=== PATIENT | male | born 1945 | race African-American/Black ===

== ENCOUNTER → 2018-11-13 | Outpatient (CLI) | payer OTHER ==
[~2018-11-13] MED LIST: ADULT LOW DOSE81 MG PO; ALTACE5 M1 PO; BENADRYL25 MG PO; CARVEDILOL12.5 MG PO; COLACE100 MG PO; COZAAR 25 MG TA25 M1 PO; EFFIENT10 MG PO; INVOKANA100 MG PO; JANUMET 50-1,01 EACH; KLOR-CON 1010 MEQ PO; LANTUS100 UNIT/M; LASIX 20 MG TAB20 MG PO; LIPITOR80 MG PO; LOPRESSOR25 PO; LOTENSIN; LOTENSIN20 MG PO; METFORMIN HCL500 MG PO; NITROGLYCERIN0.4 MG SL; NORCO 10-325 T1 EACH PO; NORCO 5-325 TA1 EACH PO; NORVASC5 MG PO; NOVOLOG100 UNIT/1 SUBQ; PREDNISONE 20 M20 MG PO; SAW PALMETTO500 MG PO; TOPROL XL25 MG PO; TRAMADOL 50 MG50 MG PO; VGO 401 EACH MC; VOLTAREN GEL 1100 G1 TOP; XARELTO10 MG PO; ZANTAC 150MG T150 M1 PO; ZPAK PO
== END ==
LOC: RAD 09:22
DX: J40 Bronchitis, not specified as acute or chronic (principal)